=== PATIENT | male | born 1975 | race Caucasian/White ===

== ENCOUNTER 2019-06-25 09:58 | Emergency (ER) | payer MEDICARE ==
[~2019-06-25] VITALS: Ht 190.5 cm; Wt 108.0 kg
[2019-06-25 11:30] LABS: BASOPHILS % 0.6 % (0.0-2.0); EOSINOPHILS % 2.5 % (0.0-5.0); HEMATOCRIT. 43.3 % (42.0-52.0); HEMOGLOBIN. 14.5 g/dL (14.0-18.0); LYMPHOCYTES % 33.8 % (20.0-50.0); MEAN CORPUSCULAR HEMOGLOBIN 29.1 pg (28.0-32.0); MEAN CORPUSCULAR VOLUME 87.1 fL (80.0-94.0); MEAN PLATELET VOLUME 8.8 fl (7.4-10.4); MONOCYTES % 8.6 % (2.0-8.0); NEUTROPHILS % 54.5 % (40.0-76.0); PLATELET 186 x1000/uL (130-400); RED BLOOD CELL COUNT 4.97 mill/uL (4.7-6.1); RED CELL DISTRIBUTION WIDTH 13.7 % (11.6-14.6)
[2019-06-25 11:37] LABS: CHLORIDE 110 mEq/L (98-107)
[2019-06-25 11:42] LABS: ETHANOL BLOOD < 10 mg/dL
[2019-06-25 15:29] LABS: *BARBITURATES SCREEN URINE NEGATIVE (NEGATIVE); *BENZODIAZEPINES SCREEN URINE NEGATIVE (NEGATIVE); *COCAINE SCREEN URINE NEGATIVE (NEGATIVE); CANNABINOID URINE SCREEN NEGATIVE (NEGATIVE)
[2019-06-25 15:30] LABS: *AMPHETAMINES SCREEN URINE NEGATIVE (NEGATIVE); METHADONE URINE SCREEN NEGATIVE (NEGATIVE); OPIATES URINE SCREEN NEGATIVE (NEGATIVE); PHENCYCLIDINE URINE SCREEN NEGATIVE (NEGATIVE)
[2019-06-26] MEDS ORDERED: LORAZEPAM 2MG/ML CPJ IM ONE (17:00)
[2019-06-27] MEDS ORDERED: LORAZEPAM 1MG TABLET PO ONE (09:00)
[2019-06-27] MEDS: OLANZAPINE 10MG TABLET PO SCH ×2 (09:19→17:27)
[2019-06-27] MEDS: ERYTHROMYCIN BASE 0.5% OPHTH OINT 3.5GM BOTHEYE SCH ×2 (15:36→23:00)
[2019-06-27] MEDS ORDERED: IBUPROFEN 600MG TABLET PO ONE (20:45)
[2019-06-28] MEDS: OLANZAPINE 10MG TABLET PO SCH (01:36)
[2019-06-28] MEDS: ERYTHROMYCIN BASE 0.5% OPHTH OINT 3.5GM BOTHEYE SCH ×2 (07:35→15:00)
[2019-06-28] MEDS ORDERED: DIPHENHYDRAMINE 50MG/ML VIAL IM PRN (08:45)
[2019-06-28] MEDS ORDERED: HALOPERIDOL LACTATE 5MG/ML VIAL IM ONE (08:45)
[2019-06-28 13:26] LABS: CLARITY URINE CLEAR (CLEAR); COLOR URINE YELLOW (YELLOW); KETONES URINE NEGATIVE (NEGATIVE); LEUKOCYTE ESTERASE URINE NEGATIVE (NEGATIVE); NITRITE URINE NEGATIVE (NEGATIVE); OCCULT BLOOD URINE NEGATIVE (NEGATIVE); PH URINE 7.5 (4.5-8.0); PROTEIN URINE NEGATIVE (NEGATIVE); SPECIFIC GRAVITY URINE 1.014 (1.005-1.030)
[2019-06-28] MEDS ORDERED: LORAZEPAM 1MG TABLET PO ONE (16:45)
[2019-06-28] MEDS ORDERED: LORAZEPAM 2MG/ML CPJ IM ONE (17:00)
[2019-06-28 21:45] VITALS: BP 130/85
== END 2019-06-28 22:11 ==
LOC: EDBD 10:27 → ER 10:27
DX: F23 Brief psychotic disorder (principal); F15.10 Other stimulant abuse, uncomplicated; F10.10 Alcohol abuse, uncomplicated; R45.851 Suicidal ideations; Y90.0 Blood alcohol level of less than 20 mg/100 ml; Z78.1 Physical restraint status; Z75.1 Person awaiting admission to adequate facility elsewhere
CPT/HCPCS: 36415; 70450; 80053; 80305; 80307; 80320; 80329; 81003; 85025; 96372; 99284; J1200; J1630; J2060; G0480

== ENCOUNTER 2021-06-17 15:24 | Emergency (ER) | payer MEDICARE, OTHER ==
[~2021-06-17] VITALS: Ht 182.9 cm; Wt 141.0 kg
[2021-06-17] MEDS ORDERED: IBUP-2029 MT (16:22)
[2021-06-17] MEDS ORDERED: AZIT250T12 MT (18:19)
[2021-06-17] MEDS ORDERED: AZITHROMYCIN 500 MG TABLET PO ONE (18:30)
[2021-06-17 20:30] VITALS: BP 133/81
== END 2021-06-17 20:47 | disposition home or self-care (01) ==
LOC: ER 15:24
DX: G89.29 Other chronic pain (principal); M54.50 Low back pain, unspecified; J18.9 Pneumonia, unspecified organism; F20.9 Schizophrenia, unspecified; E78.00 Pure hypercholesterolemia, unspecified; I10 Essential (primary) hypertension; K76.9 Liver disease, unspecified; Z86.19 Personal history of other infectious and parasitic diseases
CPT/HCPCS: 36415; 71045; 84484; 93005; 99285

== ENCOUNTER 2024-10-18 23:09 | Emergency (ER) | payer MEDICAID, OTHER ==
[~2024-10-18] VITALS: Ht 182.9 cm; Wt 151.0 kg
[~2024-10-18 23:09] MED LIST: AZIT250T12 MT; IBUP-2029 MT
[2024-10-18 23:22] VITALS: TEMP 36.8; O2SAT 100
[2024-10-19 02:00] VITALS: BP 161/77; PULSE 91; RESP 30; O2SAT 92
[2024-10-19 02:33] LABS: HEMOGLOBIN. 14.4 g/dL (14.0-18.0); MEAN CORPUSCULAR HEMOGLOBIN 28.9 pg (28.0-32.0); MEAN CORPUSCULAR HGB CONC 32.8 g/dL (31.0-37.0); MEAN CORPUSCULAR VOLUME 88.1 fL (80.0-94.0); MEAN PLATELET VOLUME 9.5 fl (7.4-10.4); PLATELET 124 x1000/uL (130-400); RED BLOOD CELL COUNT 4.99 mill/uL (4.7-6.1); WHITE BLOOD COUNT 4.2 x1000/uL (4.5-11.0)
[2024-10-19 02:34] LABS: DIFFERENTIAL COMMENT 1
[2024-10-19 02:48] LABS: CHLORIDE 107 mEq/L (98-107); POTASSIUM 4.2 mEq/L (3.5-5.1); SODIUM 141 mEq/L (136-145)
[2024-10-19 02:49] LABS: CALCIUM 9.2 mg/dL (8.7-10.4); CARBON DIOXIDE 27 mEq/L (21-32)
[2024-10-19 02:50] LABS: CLARITY URINE CLEAR (CLEAR); COLOR URINE YELLOW (YELLOW); GLUCOSE URINE NEGATIVE (NEGATIVE); KETONES URINE NEGATIVE (NEGATIVE); LEUKOCYTE ESTERASE URINE NEGATIVE (NEGATIVE); NITRITE URINE NEGATIVE (NEGATIVE); OCCULT BLOOD URINE 2+ (NEGATIVE); PH URINE 7.5 (4.5-8.0); PROTEIN URINE NEGATIVE (NEGATIVE)
[2024-10-19 02:54] LABS: CREATININE 0.6 mg/dL (0.6-1.3); GLUCOSE 117 mg/dL (70-105); TROPONIN I HIGH SENSITIVITY 25 ng/L (3.0-53); UREA NITROGEN BLOOD 6 mg/dL (9-23)
[2024-10-19 03:06] LABS: *AMPHETAMINES SCREEN URINE NEGATIVE (NEGATIVE); *BENZODIAZEPINES SCREEN URINE NEGATIVE (NEGATIVE)
[2024-10-19 03:07] LABS: *BARBITURATES SCREEN URINE NEGATIVE (NEGATIVE); *COCAINE SCREEN URINE NEGATIVE (NEGATIVE); CANNABINOID URINE SCREEN NEGATIVE (NEGATIVE); METHADONE URINE SCREEN NEGATIVE (NEGATIVE); OPIATES URINE SCREEN NEGATIVE (NEGATIVE); PHENCYCLIDINE URINE SCREEN NEGATIVE (NEGATIVE)
[2024-10-19 03:33] LABS: ETHANOL BLOOD < 10 mg/dL (<10)
[2024-10-19 03:48] LABS: BACTERIA URINE NONE SEEN; SQUAMOUS EPITHELIAL CELL URINE NONE SEEN /lpf (RARE/1+); WBC URINE NONE SEEN /hpf (0-2)
[2024-10-19 04:08] LABS: INFLUENZA TYPE A Presumptive Negative (Pres. Neg.)
[2024-10-19 04:09] LABS: INFLUENZA TYPE B Presumptive Negative (Pres. Neg.)
[2024-10-19 04:36] LABS: ECSTASY MDMA SCREEN URINE NEGATIVE (NEGATIVE)
[2024-10-19 13:01] LABS: PLATELET ESTIMATE SLIGHTLY DECREASED
== END 2024-10-19 02:36 | disposition left against medical advice (07) ==
LOC: ER 23:09
DX: I10 Essential (primary) hypertension (principal); F31.9 Bipolar disorder, unspecified; F20.9 Schizophrenia, unspecified; Z20.822 Contact with and (suspected) exposure to COVID-19; Z79.899 Other long term (current) drug therapy
CPT/HCPCS: 36415; 71045; 80048; 80305; 80320; 81003; 83880; 84484; 85025; 87426; 87804; 93005; 99285; G0480